=== PATIENT | female | born 1950 | race Caucasian/White ===

== ENCOUNTER 2020-10-10 17:08 | Inpatient (IN) | payer MEDICARE, OTHER ==
[~2020-10-10] VITALS: Ht 162.6 cm; Wt 179.2 kg
[2020-10-10 18:47] LABS: HEMOGLOBIN 14.5 gm/dl (12.3-15.3); RED BLOOD COUNT 4.58 M/UL (4.00-5.10); WHITE BLOOD COUNT 10.3 K/UL (4.5-11.0)
[2020-10-10 19:06] LABS: BUN/CREATININE RATIO 20 (0-10)
[2020-10-10] MEDS ORDERED: JANTOVEN2.5 MG PO (21:26)
[2020-10-10] MEDS ORDERED: JANTOVEN5 MG PO (21:27)
[2020-10-10] MEDS ORDERED: LISINOPRIL20 MG PO (21:28)
[2020-10-10] MEDS ORDERED: FUROSEMIDE20 MG PO (21:28)
[2020-10-10] MEDS ORDERED: EUTHYROX137 MCG PO (21:28)
[2020-10-10] MEDS ORDERED: CELEXA 20MG TAB20 MG PO (21:29)
[2020-10-10] MEDS ORDERED: VALIUM 5 MG TAB5 MG PO (21:29)
[2020-10-11 05:56] LABS: HEMOGLOBIN 14.5 gm/dl (12.3-15.3); RED BLOOD COUNT 4.48 M/UL (4.00-5.10); WHITE BLOOD COUNT 8.9 K/UL (4.5-11.0)
[2020-10-11 06:20] LABS: BUN/CREATININE RATIO 16 (0-10)
[2020-10-12 04:33] LABS: HEMOGLOBIN 13.1 gm/dl (12.3-15.3); RED BLOOD COUNT 4.29 M/UL (4.00-5.10); WHITE BLOOD COUNT 7.9 K/UL (4.5-11.0)
[2020-10-12 05:05] LABS: BUN/CREATININE RATIO 24 (0-10)
[2020-10-13 05:38] LABS: HEMOGLOBIN 10.9 gm/dl (12.3-15.3); RED BLOOD COUNT 3.55 M/UL (4.00-5.10); WHITE BLOOD COUNT 15.2 K/UL (4.5-11.0)
[2020-10-13 06:00] LABS: BUN/CREATININE RATIO 29 (0-10)
[2020-10-13 18:57] LABS: HEMOGLOBIN 9.6 gm/dl (12.3-15.3); RED BLOOD COUNT 3.03 M/UL (4.00-5.10)
[2020-10-14 04:51] LABS: HEMOGLOBIN 8.9 gm/dl (12.3-15.3); RED BLOOD COUNT 2.82 M/UL (4.00-5.10); WHITE BLOOD COUNT 10.1 K/UL (4.5-11.0)
[2020-10-14 05:19] LABS: BUN/CREATININE RATIO 34 (0-10)
[2020-10-15 04:25] LABS: HEMOGLOBIN 8.5 gm/dl (12.3-15.3); RED BLOOD COUNT 2.68 M/UL (4.00-5.10); WHITE BLOOD COUNT 8.7 K/UL (4.5-11.0)
[2020-10-15 04:49] LABS: BUN/CREATININE RATIO 32 (0-10)
[2020-10-15] MEDS ORDERED: DOCUSATE SODIU100 MG PO (10:38)
[2020-10-15] MEDS ORDERED: LOVENOX SQ (10:38)
[2020-10-15] MEDS ORDERED: WARFARIN SODIUM1 MG PO (10:38)
== END 2020-10-15 14:30 | DRG 521 ==
LOC: ER1 17:08 → M/S 18:39 → CCU 18:39 → CDU 18:39 → M/S 20:43 → CCU 10-12 21:21
PROVIDERS: Emergency Medicine; Orthopaedic Surgery; ADMIT Family Medicine
PROC: 0SR90JA Replacement of Right Hip Joint with Synthetic Substitute, Uncemented, Open Approach (ICD-10-PCS; principal; 2020-10-12 14:30)
DX: S72.011A Unspecified intracapsular fracture of right femur, initial encounter for closed fracture (principal); J96.01 Acute respiratory failure with hypoxia; I50.33 Acute on chronic diastolic (congestive) heart failure; Z68.43 Body mass index [BMI] 50.0-59.9, adult; D68.62 Lupus anticoagulant syndrome; I50.30 Unspecified diastolic (congestive) heart failure; E72.12 Methylenetetrahydrofolate reductase deficiency; E72.11 Homocystinuria; I11.0 Hypertensive heart disease with heart failure; W01.0XXA Fall on same level from slipping, tripping and stumbling without subsequent striking against object, initial encounter; Z91.81 History of falling; Y93.9 Activity, unspecified; Y92.009 Unspecified place in unspecified non-institutional (private) residence as the place of occurrence of the external cause; E66.01 Morbid (severe) obesity due to excess calories; Z20.822 Contact with and (suspected) exposure to COVID-19; I95.9 Hypotension, unspecified; H81.09 Meniere's disease, unspecified ear; E03.9 Hypothyroidism, unspecified; Z79.01 Long term (current) use of anticoagulants; I10 Essential (primary) hypertension; E89.0 Postprocedural hypothyroidism; Z90.49 Acquired absence of other specified parts of digestive tract; Z79.899 Other long term (current) drug therapy; Z88.2 Allergy status to sulfonamides; Z90.710 Acquired absence of both cervix and uterus; Z83.2 Family history of diseases of the blood and blood-forming organs and certain disorders involving the immune mechanism; Z91.09 Other allergy status, other than to drugs and biological substances; R79.1 Abnormal coagulation profile
CPT/HCPCS: 36415; 71045; 72128; 72133; 73501; 73502; 76000; 80053; 85025; 85610; 85730; 86850; 86900; 86901; 93005; 94760; 96374; 96375; 97110; 97110-GP-CQ; 97116-GP-CQ; 97162; 97166; 99285; C1776; J0690; J1650; J1885; J2001; J2270; J2370; J2405; J2704; J2710; J3010; J3370; J7030; J7050; J7120; U0002

== ENCOUNTER 2020-11-05 08:07 | Inpatient (IN) | payer MEDICARE, OTHER ==
[~2020-11-05] VITALS: Ht 162.6 cm; Wt 127.9 kg
[~2020-11-05 08:07] MED LIST: CELEXA 20MG TAB20 MG PO; DOCUSATE SODIU100 MG PO; EUTHYROX137 MCG PO; FUROSEMIDE20 MG PO; JANTOVEN2.5 MG PO; JANTOVEN5 MG PO; LISINOPRIL20 MG PO; LOVENOX SQ; VALIUM 5 MG TAB5 MG PO; WARFARIN SODIUM1 MG PO
[2020-11-05 09:36] LABS: HEMOGLOBIN 10.8 gm/dl (12.3-15.3); RED BLOOD COUNT 3.47 M/UL (4.00-5.10); WHITE BLOOD COUNT 5.5 K/UL (4.5-11.0)
[2020-11-05 09:54] LABS: BUN/CREATININE RATIO 11 (0-10)
[2020-11-05] MEDS ORDERED: WARFARIN SODIUM5 MG PO (13:45)
[2020-11-05] MEDS ORDERED: ACETAMINOPHEN500 MG PO (13:46)
[2020-11-05] MEDS ORDERED: FOLIC ACID0.4 MG PO (13:47)
[2020-11-05] MEDS ORDERED: VITAMIN B-121000 MCG PO (13:47)
[2020-11-05] MEDS ORDERED: VITAMIN B-6100 MG PO (13:47)
[2020-11-05] MEDS ORDERED: VITAMIN D325 MCG PO (13:48)
[2020-11-05] MEDS ORDERED: POTASSIUM99 M1 PO (13:48)
[2020-11-05] MEDS ORDERED: CALTRATE 600MG600 MG PO (13:49)
[2020-11-05] MEDS ORDERED: FUROSEMIDE20 MG PO (13:50)
[2020-11-06 03:28] LABS: HEMOGLOBIN 11.1 gm/dl (12.3-15.3); RED BLOOD COUNT 3.63 M/UL (4.00-5.10)
[2020-11-06 03:34] LABS: WHITE BLOOD COUNT 6.9 K/UL (4.5-11.0)
[2020-11-06 03:54] LABS: BUN/CREATININE RATIO 12 (0-10)
[2020-11-07 05:19] LABS: HEMOGLOBIN 11.1 gm/dl (12.3-15.3); RED BLOOD COUNT 3.6 M/UL (4.00-5.10); WHITE BLOOD COUNT 5.8 K/UL (4.5-11.0)
[2020-11-07 05:38] LABS: BUN/CREATININE RATIO 15 (0-10)
--- NOTE | 2020-11-07 10:51 | NUR ---
REMOVED RIGHT HIP DRESSING PER DR ZELAYA REQUEST AT BEDSIDE. REPLACED WITH WET TO DRY DRESSING ORDERED. SITE WAS MODERATELY RED WITH MILD OOZING FROM SUTURE SIZE. WCTM. PT TOLERATED WELL.
[2020-11-08 05:05] LABS: BUN/CREATININE RATIO 19 (0-10)
--- NOTE | 2020-11-08 10:03 | NUR ---
PT REFUSED LAB WORK FOR INR TO DOSE WARFARIN. PT ALSO REFUSED LOVENOX INJECTION. DR ZELAYA AT BEDSIDE AND EDUCATED PT ON IMPORTANCE OF BOTH. PT CONTINUES TO REFUSE AFTER EDUCATION WAS GIVEN.
[2020-11-08] MEDS ORDERED: OMNICEF 300 MG300 MG PO (10:25)
[2020-11-08] MEDS ORDERED: AUGMENTIN 875-1 EACH PO (10:31)
== END 2020-11-08 11:20 | disposition home or self-care (01) | DRG 863 ==
LOC: ER1 08:07 → CDU 12:15 → M/S 12:15
PROVIDERS: Family Medicine; Physician Assistant; ADMIT Internal Medicine
DX: T81.49XA Infection following a procedure, other surgical site, initial encounter (principal); T81.32XA Disruption of internal operation (surgical) wound, not elsewhere classified, initial encounter; L03.115 Cellulitis of right lower limb; M96.842 Postprocedural seroma of a musculoskeletal structure following a musculoskeletal system procedure; D68.59 Other primary thrombophilia; Z68.42 Body mass index [BMI] 45.0-49.9, adult; B96.4 Proteus (mirabilis) (morganii) as the cause of diseases classified elsewhere; Y83.8 Other surgical procedures as the cause of abnormal reaction of the patient, or of later complication, without mention of misadventure at the time of the procedure; Z66 Do not resuscitate; M79.89 Other specified soft tissue disorders; I16.0 Hypertensive urgency; I11.0 Hypertensive heart disease with heart failure; I50.9 Heart failure, unspecified; H81.09 Meniere's disease, unspecified ear; E66.01 Morbid (severe) obesity due to excess calories; E03.9 Hypothyroidism, unspecified; D64.9 Anemia, unspecified; Z79.01 Long term (current) use of anticoagulants; Z90.49 Acquired absence of other specified parts of digestive tract; Z98.890 Other specified postprocedural states; Z88.2 Allergy status to sulfonamides; Z79.899 Other long term (current) drug therapy; Z83.3 Family history of diabetes mellitus; Z84.89 Family history of other specified conditions
CPT/HCPCS: 36415; 51702; 73502; 80048; 80053; 80202; 81001; 83605; 85025; 85610; 87040; 87070; 87077; 87186; 87205; 96374; 99284; J0692; J1335; J1650; J3370; J7050; J7070; U0002

== ENCOUNTER → 2020-11-12 | Outpatient (CLI) | payer MEDICARE, OTHER ==
[~2020-11-12] MED LIST changes: +ACETAMINOPHEN500 MG PO; +AUGMENTIN 875-1 EACH PO; +CALTRATE 600MG600 MG PO; +FOLIC ACID0.4 MG PO; +OMNICEF 300 MG300 MG PO; +POTASSIUM99 M1 PO; +VITAMIN B-121000 MCG PO; +VITAMIN B-6100 MG PO; +VITAMIN D325 MCG PO; +WARFARIN SODIUM5 MG PO
== END ==
LOC: WCC 08:30
DX: T81.32XA Disruption of internal operation (surgical) wound, not elsewhere classified, initial encounter (principal); B96.4 Proteus (mirabilis) (morganii) as the cause of diseases classified elsewhere; I10 Essential (primary) hypertension; E66.01 Morbid (severe) obesity due to excess calories; Z79.01 Long term (current) use of anticoagulants; Z88.2 Allergy status to sulfonamides
CPT/HCPCS: G0463

== ENCOUNTER → 2020-11-19 | Outpatient (CLI) | payer MEDICARE, OTHER | LOC: WCC 08:28 | DX: T81.32XA Disruption of internal operation (surgical) wound, not elsewhere classified, initial encounter (principal); I10 Essential (primary) hypertension; E66.01 Morbid (severe) obesity due to excess calories; B96.4 Proteus (mirabilis) (morganii) as the cause of diseases classified elsewhere; Z68.42 Body mass index [BMI] 45.0-49.9, adult; Z88.2 Allergy status to sulfonamides; Z79.01 Long term (current) use of anticoagulants; Z79.2 Long term (current) use of antibiotics; Z79.899 Other long term (current) drug therapy ==

== ENCOUNTER → 2020-11-26 | Outpatient (CLI) | payer MEDICARE, OTHER | LOC: WCC 08:30 | DX: T81.32XD Disruption of internal operation (surgical) wound, not elsewhere classified, subsequent encounter (principal); I10 Essential (primary) hypertension; E66.01 Morbid (severe) obesity due to excess calories; B96.4 Proteus (mirabilis) (morganii) as the cause of diseases classified elsewhere; Z68.42 Body mass index [BMI] 45.0-49.9, adult; Z88.2 Allergy status to sulfonamides; Z79.01 Long term (current) use of anticoagulants; Z79.2 Long term (current) use of antibiotics; Z79.899 Other long term (current) drug therapy ==

== ENCOUNTER → 2020-12-05 | Outpatient (CLI) | payer MEDICARE, OTHER | LOC: WCC 08:00 | DX: T81.32XD Disruption of internal operation (surgical) wound, not elsewhere classified, subsequent encounter (principal); I10 Essential (primary) hypertension; E66.01 Morbid (severe) obesity due to excess calories; B96.4 Proteus (mirabilis) (morganii) as the cause of diseases classified elsewhere; Z68.42 Body mass index [BMI] 45.0-49.9, adult; Z88.2 Allergy status to sulfonamides; Z79.01 Long term (current) use of anticoagulants; Z79.2 Long term (current) use of antibiotics; Z79.899 Other long term (current) drug therapy ==

== ENCOUNTER → 2020-12-12 | Outpatient (CLI) | payer MEDICARE, OTHER | LOC: WCC 08:41 | DX: T81.32XD Disruption of internal operation (surgical) wound, not elsewhere classified, subsequent encounter (principal); I10 Essential (primary) hypertension; E66.01 Morbid (severe) obesity due to excess calories; B96.4 Proteus (mirabilis) (morganii) as the cause of diseases classified elsewhere; Z68.42 Body mass index [BMI] 45.0-49.9, adult; Z88.2 Allergy status to sulfonamides; Z79.01 Long term (current) use of anticoagulants; Z79.2 Long term (current) use of antibiotics; Z79.899 Other long term (current) drug therapy ==

== ENCOUNTER → 2020-12-17 | Outpatient (CLI) | payer MEDICARE, OTHER | LOC: WCC 08:30 | DX: T81.32XD Disruption of internal operation (surgical) wound, not elsewhere classified, subsequent encounter (principal); B96.4 Proteus (mirabilis) (morganii) as the cause of diseases classified elsewhere; E66.01 Morbid (severe) obesity due to excess calories; I10 Essential (primary) hypertension ==

== ENCOUNTER → 2020-12-24 | Outpatient (CLI) | payer MEDICARE, OTHER | LOC: WCC 08:17 | DX: T81.32XD Disruption of internal operation (surgical) wound, not elsewhere classified, subsequent encounter (principal); I10 Essential (primary) hypertension; E66.01 Morbid (severe) obesity due to excess calories; B96.4 Proteus (mirabilis) (morganii) as the cause of diseases classified elsewhere; Z68.42 Body mass index [BMI] 45.0-49.9, adult; Z79.01 Long term (current) use of anticoagulants; Z79.2 Long term (current) use of antibiotics; Z79.899 Other long term (current) drug therapy ==

== ENCOUNTER → 2021-01-07 | Outpatient (CLI) | payer MEDICARE, OTHER | LOC: WCC 08:16 | DX: T81.32XA Disruption of internal operation (surgical) wound, not elsewhere classified, initial encounter (principal); I10 Essential (primary) hypertension; E66.01 Morbid (severe) obesity due to excess calories; B96.4 Proteus (mirabilis) (morganii) as the cause of diseases classified elsewhere; Z68.42 Body mass index [BMI] 45.0-49.9, adult; Z88.2 Allergy status to sulfonamides; Z79.01 Long term (current) use of anticoagulants; Z79.899 Other long term (current) drug therapy ==

== ENCOUNTER → 2021-01-22 | Outpatient (CLI) | payer MEDICARE, OTHER | LOC: WCC 08:27 | DX: T81.31XA Disruption of external operation (surgical) wound, not elsewhere classified, initial encounter (principal); Z88.2 Allergy status to sulfonamides; Z79.01 Long term (current) use of anticoagulants; Z79.899 Other long term (current) drug therapy | CPT/HCPCS: 87070; 87077; 87186; 87205 ==

== ENCOUNTER → 2021-02-05 | Outpatient (CLI) | payer MEDICARE, OTHER | LOC: WCC 08:30 | DX: T81.32XA Disruption of internal operation (surgical) wound, not elsewhere classified, initial encounter (principal); I10 Essential (primary) hypertension; E66.01 Morbid (severe) obesity due to excess calories; B96.4 Proteus (mirabilis) (morganii) as the cause of diseases classified elsewhere; Z68.42 Body mass index [BMI] 45.0-49.9, adult; Z79.01 Long term (current) use of anticoagulants; Z79.2 Long term (current) use of antibiotics; Z79.899 Other long term (current) drug therapy ==

== ENCOUNTER → 2021-02-15 | Outpatient (CLI) | payer MEDICARE, OTHER | LOC: WCC 08:30 | PROC: 0JBL0ZZ Excision of Right Upper Leg Subcutaneous Tissue and Fascia, Open Approach (ICD-10-PCS; principal; 2021-02-15) | DX: T81.32XA Disruption of internal operation (surgical) wound, not elsewhere classified, initial encounter (principal); I96 Gangrene, not elsewhere classified; I10 Essential (primary) hypertension; B96.4 Proteus (mirabilis) (morganii) as the cause of diseases classified elsewhere; E66.01 Morbid (severe) obesity due to excess calories; Z68.42 Body mass index [BMI] 45.0-49.9, adult; Z88.2 Allergy status to sulfonamides; Z79.01 Long term (current) use of anticoagulants; Z79.899 Other long term (current) drug therapy; Y83.8 Other surgical procedures as the cause of abnormal reaction of the patient, or of later complication, without mention of misadventure at the time of the procedure ==

== ENCOUNTER → 2021-02-19 | Outpatient (CLI) | payer MEDICARE, OTHER | LOC: EXRD 02-13 10:45 | DX: R60.0 Localized edema (principal) | CPT/HCPCS: 93925 ==

== ENCOUNTER → 2021-03-04 | Outpatient (CLI) | payer MEDICARE, OTHER | LOC: WCC 08:09 | DX: T81.32XA Disruption of internal operation (surgical) wound, not elsewhere classified, initial encounter (principal); I10 Essential (primary) hypertension; B96.4 Proteus (mirabilis) (morganii) as the cause of diseases classified elsewhere; E66.01 Morbid (severe) obesity due to excess calories; Z68.42 Body mass index [BMI] 45.0-49.9, adult; Z96.641 Presence of right artificial hip joint | CPT/HCPCS: 97597 ==

== ENCOUNTER → 2021-03-05 | Outpatient (CLI) | payer MEDICARE, OTHER | LOC: KOH-I 15:54 | DX: J90 Pleural effusion, not elsewhere classified (principal) | CPT/HCPCS: 71046 ==

== ENCOUNTER → 2021-03-25 | Outpatient (CLI) | payer MEDICARE, OTHER | LOC: WCC 08:27 | DX: T81.32XA Disruption of internal operation (surgical) wound, not elsewhere classified, initial encounter (principal); I10 Essential (primary) hypertension; E66.01 Morbid (severe) obesity due to excess calories; B96.4 Proteus (mirabilis) (morganii) as the cause of diseases classified elsewhere | CPT/HCPCS: 97597 ==

== ENCOUNTER → 2021-04-10 | Outpatient (CLI) | payer MEDICARE, OTHER | LOC: EXRD 04-01 11:30 → KOH-I 16:08 → EXRD 04-11 10:30 | DX: Z51.81 Encounter for therapeutic drug level monitoring (principal); Z92.29 Personal history of other drug therapy | CPT/HCPCS: 70450 ==

== ENCOUNTER 2021-05-10 01:58 | Inpatient (IN) | payer MEDICARE, OTHER ==
[~2021-05-10] VITALS: Ht 162.6 cm; Wt 129.3 kg
[~2021-05-10 01:58] MED LIST changes: -CELEXA 20MG TAB20 MG PO; -EUTHYROX137 MCG PO; -POTASSIUM99 M1 PO; -WARFARIN SODIUM5 MG PO
[2021-05-10 02:29] LABS: HEMOGLOBIN 9.9 gm/dl (12.3-15.3); RED BLOOD COUNT 3.61 M/UL (4.00-5.10); WHITE BLOOD COUNT 9.4 K/UL (4.5-11.0)
[2021-05-10 02:57] LABS: BUN/CREATININE RATIO 17 (0-10)
[2021-05-10] MEDS ORDERED: WARFARIN SODIUM5 MG PO (13:45)
[2021-05-10] MEDS ORDERED: POTASSIUM CHLO10 ME1 PO (13:48)
[2021-05-10] MEDS ORDERED: FUROSEMIDE40 MG PO (13:50)
[2021-05-10] MEDS ORDERED: ATIVAN1 MG PO (15:04)
[2021-05-10] MEDS ORDERED: LISINOPRIL10 MG PO (15:05)
[2021-05-10] MEDS ORDERED: EUTHYROX137 MCG PO (21:28)
[2021-05-10] MEDS ORDERED: CELEXA 20MG TAB20 MG PO (21:29)
[2021-05-11 03:30] LABS: HEMOGLOBIN 9.2 gm/dl (12.3-15.3); RED BLOOD COUNT 3.34 M/UL (4.00-5.10)
[2021-05-11 03:34] LABS: WHITE BLOOD COUNT 6.5 K/UL (4.5-11.0)
[2021-05-11 04:01] LABS: BUN/CREATININE RATIO 17 (0-10)
[2021-05-12 03:23] LABS: HEMOGLOBIN 9.5 gm/dl (12.3-15.3); RED BLOOD COUNT 3.47 M/UL (4.00-5.10); WHITE BLOOD COUNT 5.3 K/UL (4.5-11.0)
[2021-05-12 03:56] LABS: BUN/CREATININE RATIO 24 (0-10)
[2021-05-13 03:12] LABS: HEMOGLOBIN 9.2 gm/dl (12.3-15.3); RED BLOOD COUNT 3.37 M/UL (4.00-5.10); WHITE BLOOD COUNT 6.6 K/UL (4.5-11.0)
[2021-05-13 04:07] LABS: BUN/CREATININE RATIO 34 (0-10)
[2021-05-14 08:56] LABS: HEMOGLOBIN 8.9 gm/dl (12.3-15.3); RED BLOOD COUNT 3.39 M/UL (4.00-5.10); WHITE BLOOD COUNT 5.6 K/UL (4.5-11.0)
[2021-05-14] MEDS ORDERED: AMLODIPINE BESYL5 MG PO (10:09)
[2021-05-14] MEDS ORDERED: ACETAZOLAMIDE250 MG PO (10:09)
[2021-05-14] MEDS ORDERED: JANTOVEN1 MG PO (10:09)
[2021-05-14 10:14] LABS: BUN/CREATININE RATIO 29 (0-10)
== END 2021-05-14 12:26 | disposition home or self-care (01) | DRG 291 ==
LOC: ER1 01:58 → PROG CARE 05:01
PROVIDERS: Emergency Medicine; Internal Medicine; Internal Medicine Infectious Disease; ADMIT Internal Medicine
PROC: B24BZZ4 Ultrasonography of Heart with Aorta, Transesophageal (ICD-10-PCS; principal; 2021-05-10)
DX: I11.0 Hypertensive heart disease with heart failure (principal); I50.33 Acute on chronic diastolic (congestive) heart failure; J96.21 Acute and chronic respiratory failure with hypoxia; J96.22 Acute and chronic respiratory failure with hypercapnia; Z20.822 Contact with and (suspected) exposure to COVID-19; E66.2 Morbid (severe) obesity with alveolar hypoventilation; E87.1 Hypo-osmolality and hyponatremia; Z68.41 Body mass index [BMI] 40.0-44.9, adult; D68.59 Other primary thrombophilia; I16.9 Hypertensive crisis, unspecified; Z68.42 Body mass index [BMI] 45.0-49.9, adult; D68.9 Coagulation defect, unspecified; I87.8 Other specified disorders of veins; Z96.641 Presence of right artificial hip joint; I27.20 Pulmonary hypertension, unspecified; F41.9 Anxiety disorder, unspecified; D64.9 Anemia, unspecified; K74.60 Unspecified cirrhosis of liver; F32.9 Major depressive disorder, single episode, unspecified; E03.9 Hypothyroidism, unspecified; I08.3 Combined rheumatic disorders of mitral, aortic and tricuspid valves; I16.0 Hypertensive urgency; Z90.49 Acquired absence of other specified parts of digestive tract; Z83.3 Family history of diabetes mellitus; Z90.710 Acquired absence of both cervix and uterus; Z82.49 Family history of ischemic heart disease and other diseases of the circulatory system; Z82.0 Family history of epilepsy and other diseases of the nervous system; Z88.2 Allergy status to sulfonamides; Z91.018 Allergy to other foods
CPT/HCPCS: ECHO; 36415; 36600; 71045; 80048; 80053; 80061; 82550; 82553; 82803; 83036; 83605; 83735; 83874; 83880; 84132; 84443; 84484; 84550; 85025; 85027; 85610; 86140; 93005; 93306; 94640; 94660; 94760; 96374; 96375; 97162; 97166; 97530; 97535; 99285; A6212; J0456; J0696; J1120; J1205; J2920; J7030; U0002

== ENCOUNTER 2022-02-23 07:25 | Inpatient (IN) | payer MEDICARE, OTHER ==
[~2022-02-23] VITALS: Ht 165.1 cm; Wt 137.6 kg
[~2022-02-23 07:25] MED LIST changes: +ACETAMINOPHEN325 MG PO; -ACETAMINOPHEN500 MG PO; +ACETAZOLAMIDE250 MG PO; +AMLODIPINE BESYL5 MG PO; +ATIVAN1 MG PO; +CELEXA 20MG TAB20 MG PO; +EUTHYROX137 MCG PO; +FUROSEMIDE40 MG PO; +JANTOVEN1 MG PO; +LISINOPRIL10 MG PO; +POTASSIUM CHLO10 ME1 PO; +WARFARIN SODIUM5 MG PO
[2022-02-23 08:10] LABS: HEMOGLOBIN 10.3 gm/dl (12.3-15.3); RED BLOOD COUNT 3.74 M/UL (4.00-5.10)
[2022-02-23 08:21] LABS: WHITE BLOOD COUNT 31.8 K/UL (4.5-11.0)
[2022-02-23 08:32] LABS: BUN/CREATININE RATIO 30 (0-10)
[2022-02-23] MEDS ORDERED: ACETAZOLAMIDE125 MG PO (12:19)
[2022-02-23] MEDS ORDERED: WARFARIN SODIUM5 MG PO (12:22)
[2022-02-23] MEDS ORDERED: FOLIC ACID1 MG PO (12:24)
[2022-02-23] MEDS ORDERED: SYNTHROID150 MCG PO (12:24)
[2022-02-23] MEDS ORDERED: [UNRECOGNIZED DRUG - OTHER] TOP (12:25)
[2022-02-23] MEDS ORDERED: TIZANIDINE HCL4 MG PO (12:25)
[2022-02-24 04:05] LABS: HEMOGLOBIN 8.6 gm/dl (12.3-15.3)
[2022-02-24 04:20] LABS: BUN/CREATININE RATIO 31 (0-10)
[2022-02-24 04:21] LABS: RED BLOOD COUNT 3.15 M/UL (4.00-5.10); WHITE BLOOD COUNT 19.7 K/UL (4.5-11.0)
[2022-02-25 04:50] LABS: HEMOGLOBIN 8.5 gm/dl (12.3-15.3); RED BLOOD COUNT 3.13 M/UL (4.00-5.10)
[2022-02-25 04:53] LABS: WHITE BLOOD COUNT 9.6 K/UL (4.5-11.0)
[2022-02-25 05:43] LABS: BUN/CREATININE RATIO 42 (0-10)
[2022-02-26 04:57] LABS: HEMOGLOBIN 9.7 gm/dl (12.3-15.3); WHITE BLOOD COUNT 9.2 K/UL (4.5-11.0)
[2022-02-26 05:15] LABS: RED BLOOD COUNT 3.59 M/UL (4.00-5.10)
[2022-02-26 05:31] LABS: BUN/CREATININE RATIO 39 (0-10)
[2022-02-27] MEDS ORDERED: CEPHALEXIN500 MG PO (11:43)
[2022-02-27] MEDS ORDERED: BUMETANIDE1 MG PO (11:43)
--- NOTE | 2022-02-27 14:21 | NUR ---
DISCHARGE TEACHING COMPLETED WITH PATIENT AND REPORT CALLED TO HOME HEALTH.
== END 2022-02-27 16:55 | disposition home or self-care (01) | DRG 871 ==
LOC: ER1 07:25 → CDU 11:30 → PROG CARE 11:30 → CCU 16:07 → PROG CARE 02-24 16:47
PROVIDERS: Emergency Medicine; Internal Medicine; Physician Assistant Medical; ADMIT Internal Medicine Infectious Disease
PROC: 3E03329 Introduction of Other Anti-infective into Peripheral Vein, Percutaneous Approach (ICD-10-PCS; principal; 2022-02-23)
PROC: 5A09357 Assistance with Respiratory Ventilation, Less than 24 Consecutive Hours, Continuous Positive Airway Pressure (ICD-10-PCS; 2022-02-23)
PROC: 5A09357 Assistance with Respiratory Ventilation, Less than 24 Consecutive Hours, Continuous Positive Airway Pressure (ICD-10-PCS; 2022-02-23)
DX: A41.9 Sepsis, unspecified organism (principal); I50.33 Acute on chronic diastolic (congestive) heart failure; J96.21 Acute and chronic respiratory failure with hypoxia; Z20.822 Contact with and (suspected) exposure to COVID-19; L03.115 Cellulitis of right lower limb; D68.62 Lupus anticoagulant syndrome; E66.2 Morbid (severe) obesity with alveolar hypoventilation; Z68.42 Body mass index [BMI] 45.0-49.9, adult; R65.20 Severe sepsis without septic shock; I11.0 Hypertensive heart disease with heart failure; Z96.641 Presence of right artificial hip joint; H81.03 Meniere's disease, bilateral; I27.20 Pulmonary hypertension, unspecified; E03.9 Hypothyroidism, unspecified; D64.9 Anemia, unspecified; I87.2 Venous insufficiency (chronic) (peripheral); I08.0 Rheumatic disorders of both mitral and aortic valves; Z90.710 Acquired absence of both cervix and uterus; Z90.49 Acquired absence of other specified parts of digestive tract; Z88.2 Allergy status to sulfonamides; Z88.8 Allergy status to other drugs, medicaments and biological substances; Z91.018 Allergy to other foods; Z83.3 Family history of diabetes mellitus; Z82.0 Family history of epilepsy and other diseases of the nervous system
CPT/HCPCS: 0240U; 36415; 36600; 71045; 80048; 80053; 80202; 81001; 82550; 82553; 82607; 82728; 82746; 82803; 83036; 83540; 83550; 83605; 83735; 83880; 84100; 84484; 85025; 85027; 85610; 87040; 87086; 93005; 94660; 94760; 96374; 96375; 96376; 97110; 97162; 97165; 97530; 97530-GP-CQ; 99285; A6212; J0690; J0692; J1756; J1940; J2060; J2270; J2543; J3370; J7030; J7040; J7070; Q9967

== ENCOUNTER 2022-03-15 11:07 | Inpatient (IN) | payer MEDICARE, OTHER ==
[~2022-03-15] VITALS: Ht 162.6 cm; Wt 131.3 kg
[~2022-03-15 11:07] MED LIST changes: +ACETAZOLAMIDE125 MG PO; +BUMETANIDE1 MG PO; +CEPHALEXIN500 MG PO; +FOLIC ACID1 MG PO; +SYNTHROID150 MCG PO; +TIZANIDINE HCL4 MG PO; +[UNRECOGNIZED DRUG - OTHER] TOP
[2022-03-15 11:52] LABS: HEMOGLOBIN 8.9 gm/dl (12.3-15.3); RED BLOOD COUNT 3.12 M/UL (4.00-5.10); WHITE BLOOD COUNT 6.3 K/UL (4.5-11.0)
[2022-03-15 12:24] LABS: BUN/CREATININE RATIO 52 (0-10)
[2022-03-15] MEDS ORDERED: FUROSEMIDE40 MG PO (18:12)
[2022-03-16 07:08] LABS: HEMOGLOBIN 9.8 gm/dl (12.3-15.3)
[2022-03-16 07:10] LABS: RED BLOOD COUNT 3.48 M/UL (4.00-5.10); WHITE BLOOD COUNT 7.9 K/UL (4.5-11.0)
[2022-03-16 07:29] LABS: BUN/CREATININE RATIO 53 (0-10)
[2022-03-17 07:19] LABS: BUN/CREATININE RATIO 42 (0-10)
[2022-03-18 07:12] LABS: HBSAG SCREEN Negative (Negative); HCV AB 0.3 (0.0-0.9); HEP A AB, IGM Indeterminate (Negative); HEP B CORE AB, IGM Negative (Negative)
[2022-03-18 10:15] LABS: CREATININE, URINE 25.5 mg/dL (Not Estab.)
--- NOTE | 2022-03-18 17:44 | NUR ---
P.T GOT THE PT UP TO THE BEDSIDE COMMODE, IT WAS VERY SMALL FOR THE PT. PT GOT STUCK AND IN ORDER TO GET HER OUT WE HAD TO SWING THE ARM OUT. WHEN WE MOVED THE ARM WE NOTICED HER RIGHT HIP HAD A SKIN TEAR. HOUSE WAS NOTIFIED, AND NET DEVELOPER CONSULTANT WAS MADE AWARE.
[2022-03-19 07:23] LABS: HEMOGLOBIN 9.2 gm/dl (12.3-15.3); RED BLOOD COUNT 3.26 M/UL (4.00-5.10); WHITE BLOOD COUNT 6.6 K/UL (4.5-11.0)
[2022-03-20 06:40] LABS: HEMOGLOBIN 9.1 gm/dl (12.3-15.3); RED BLOOD COUNT 3.29 M/UL (4.00-5.10); WHITE BLOOD COUNT 6.6 K/UL (4.5-11.0)
[2022-03-21 06:23] LABS: HEMOGLOBIN 9.5 gm/dl (12.3-15.3); RED BLOOD COUNT 3.41 M/UL (4.00-5.10); WHITE BLOOD COUNT 6.4 K/UL (4.5-11.0)
[2022-03-22 08:08] LABS: BUN/CREATININE RATIO 45 (0-10)
[2022-03-23 05:58] LABS: HEMOGLOBIN 9.5 gm/dl (12.3-15.3); RED BLOOD COUNT 3.38 M/UL (4.00-5.10); WHITE BLOOD COUNT 7.9 K/UL (4.5-11.0)
[2022-03-23 06:21] LABS: BUN/CREATININE RATIO 42 (0-10)
[2022-03-24 07:01] LABS: RED BLOOD COUNT 3.56 M/UL (4.00-5.10); WHITE BLOOD COUNT 7.2 K/UL (4.5-11.0)
[2022-03-24 07:32] LABS: BUN/CREATININE RATIO 39 (0-10)
[2022-03-25 06:05] LABS: HEMOGLOBIN 9.5 gm/dl (12.3-15.3); RED BLOOD COUNT 3.36 M/UL (4.00-5.10); WHITE BLOOD COUNT 7.4 K/UL (4.5-11.0)
[2022-03-25 06:23] LABS: BUN/CREATININE RATIO 33 (0-10)
[2022-03-26 06:13] LABS: HEMOGLOBIN 9.7 gm/dl (12.3-15.3); RED BLOOD COUNT 3.4 M/UL (4.00-5.10); WHITE BLOOD COUNT 6.7 K/UL (4.5-11.0)
[2022-03-26 06:44] LABS: BUN/CREATININE RATIO 33 (0-10)
[2022-03-27 10:09] LABS: HEMOGLOBIN 9.7 gm/dl (12.3-15.3); RED BLOOD COUNT 3.39 M/UL (4.00-5.10); WHITE BLOOD COUNT 7.2 K/UL (4.5-11.0)
[2022-03-27 10:20] LABS: BUN/CREATININE RATIO 31 (0-10)
[2022-03-28 06:46] LABS: BUN/CREATININE RATIO 31 (0-10)
[2022-03-28 09:17] LABS: BUN/CREATININE RATIO 29 (0-10)
[2022-03-29 05:36] LABS: HEMOGLOBIN 9.8 gm/dl (12.3-15.3); RED BLOOD COUNT 3.43 M/UL (4.00-5.10); WHITE BLOOD COUNT 7.1 K/UL (4.5-11.0)
[2022-03-29 06:00] LABS: BUN/CREATININE RATIO 31 (0-10)
[2022-03-30 08:46] LABS: BUN/CREATININE RATIO 26 (0-10)
[2022-03-31 02:50] LABS: HEMOGLOBIN 9.7 gm/dl (12.3-15.3); RED BLOOD COUNT 3.41 M/UL (4.00-5.10); WHITE BLOOD COUNT 7.2 K/UL (4.5-11.0)
[2022-03-31 03:18] LABS: BUN/CREATININE RATIO 31 (0-10)
[2022-03-31 14:10] LABS: ACTIN (SMOOTH MUSCLE) ANTIBODY 11 Units (0-19); MITOCHONDRIAL (M2) ANTIBODY <20.0 Units (0.0-20.0)
[2022-03-31 19:29] LABS: BUN/CREATININE RATIO 30 (0-10)
[2022-04-01 06:23] LABS: HEMOGLOBIN 9.5 gm/dl (12.3-15.3); RED BLOOD COUNT 3.32 M/UL (4.00-5.10); WHITE BLOOD COUNT 6.3 K/UL (4.5-11.0)
[2022-04-01 06:37] LABS: BUN/CREATININE RATIO 29 (0-10)
[2022-04-01 16:15] LABS: BUN/CREATININE RATIO 28 (0-10)
[2022-04-02 06:04] LABS: HEMOGLOBIN 9.8 gm/dl (12.3-15.3); RED BLOOD COUNT 3.41 M/UL (4.00-5.10); WHITE BLOOD COUNT 5.9 K/UL (4.5-11.0)
[2022-04-02 06:22] LABS: BUN/CREATININE RATIO 26 (0-10)
--- NOTE | 2022-04-02 10:44 | NUR ---
EDUCATED PT AND SON ABOUT THE IMPORTANCE OF ADHERING TO THE 800 CC FLUID RESTRICTION. PT AND SON VERBALIZE UNDERSTANDING AND WILLINGNESS TO BE COMPLAITN TO THE TREATMENT REGGIMEN.
[2022-04-03 06:37] LABS: HEMOGLOBIN 9.7 gm/dl (12.3-15.3); RED BLOOD COUNT 3.36 M/UL (4.00-5.10); WHITE BLOOD COUNT 6.1 K/UL (4.5-11.0)
[2022-04-03 07:00] LABS: BUN/CREATININE RATIO 28 (0-10)
[2022-04-04 06:50] LABS: BUN/CREATININE RATIO 26 (0-10)
[2022-04-04] MEDS ORDERED: WARFARIN SODIU2.5 MG PO (08:57)
[2022-04-04] MEDS ORDERED: DEMADEX 20 MG T20 MG PO (08:57)
[2022-04-04] MEDS ORDERED: IPRAT-ALBUT 0.5-3 ML NEB (08:57)
[2022-04-04] MEDS ORDERED: FERROUS SULFAT325 M2 PO (08:57)
[2022-04-04] MEDS ORDERED: JANTOVEN1 MG PO (08:57)
[2022-04-04] MEDS ORDERED: CHRONULAC20 GM/30 M PO (08:57)
[2022-04-04] MEDS ORDERED: CODEINE SULFATE15 MG PO (09:02)
--- NOTE | 2022-04-04 14:03 | NUR ---
CALLED AND GAVE REPORT TO ELY AT [facility].
== END 2022-04-04 13:30 | disposition home or self-care (01) | DRG 291 ==
LOC: ER1 11:07 → MED SURG 4 15:08 → CDU 15:08 → MED SURG 4 18:06
PROVIDERS: Internal Medicine; Internal Medicine Nephrology; Nurse Practitioner; Physician Assistant; ADMIT Internal Medicine
PROC: B24BZZZ Ultrasonography of Heart with Aorta (ICD-10-PCS; principal; 2022-03-17)
PROC: 5A09357 Assistance with Respiratory Ventilation, Less than 24 Consecutive Hours, Continuous Positive Airway Pressure (ICD-10-PCS; 2022-03-20)
PROC: 5A09357 Assistance with Respiratory Ventilation, Less than 24 Consecutive Hours, Continuous Positive Airway Pressure (ICD-10-PCS; 2022-03-23)
DX: I11.0 Hypertensive heart disease with heart failure (principal); I50.33 Acute on chronic diastolic (congestive) heart failure; J96.21 Acute and chronic respiratory failure with hypoxia; Z20.822 Contact with and (suspected) exposure to COVID-19; J96.22 Acute and chronic respiratory failure with hypercapnia; E87.1 Hypo-osmolality and hyponatremia; B15.9 Hepatitis A without hepatic coma; E87.3 Alkalosis; D68.62 Lupus anticoagulant syndrome; I47.1 Supraventricular tachycardia; E66.2 Morbid (severe) obesity with alveolar hypoventilation; R18.8 Other ascites; Z68.43 Body mass index [BMI] 50.0-59.9, adult; I35.1 Nonrheumatic aortic (valve) insufficiency; Z96.641 Presence of right artificial hip joint; E86.1 Hypovolemia; R74.01 Elevation of levels of liver transaminase levels; K76.0 Fatty (change of) liver, not elsewhere classified; K74.60 Unspecified cirrhosis of liver; I27.20 Pulmonary hypertension, unspecified; I35.0 Nonrheumatic aortic (valve) stenosis; D63.8 Anemia in other chronic diseases classified elsewhere; E03.9 Hypothyroidism, unspecified; E87.6 Hypokalemia; E88.09 Other disorders of plasma-protein metabolism, not elsewhere classified; H81.09 Meniere's disease, unspecified ear; L89.312 Pressure ulcer of right buttock, stage 2; I87.8 Other specified disorders of veins; E11.9 Type 2 diabetes mellitus without complications; T50.2X5A Adverse effect of carbonic-anhydrase inhibitors, benzothiadiazides and other diuretics, initial encounter; D50.9 Iron deficiency anemia, unspecified; Z99.81 Dependence on supplemental oxygen; Z90.710 Acquired absence of both cervix and uterus; Z90.49 Acquired absence of other specified parts of digestive tract; Z88.2 Allergy status to sulfonamides; Z91.018 Allergy to other foods; Z82.49 Family history of ischemic heart disease and other diseases of the circulatory system
CPT/HCPCS: ECHO; 0240U; 0241U; 36415; 36600; 70450; 71045; 74170; 80048; 80053; 80074; 80076; 80307; 81001; 82043; 82105; 82140; 82436; 82550; 82553; 82570; 82728; 82803; 82962; 83516; 83540; 83550; 83605; 83690; 83735; 83880; 83935; 84100; 84132; 84133; 84156; 84295; 84300; 84484; 85025; 85027; 85610; 86708; 86709; 87040; 87086; 93005; 93306; 94640; 94660; 94664; 94760; 96374; 96375; 96376; 97110; 97110-GP-CQ; 97116; 97116-GP-CQ; 97161; 97165; 97530; 97530-GP-CQ; 97535; 99285; G0378; J1756; J1940; J2270; J7030; Q9967